=== PATIENT | male | born 1995 | race Caucasian/White ===

== ENCOUNTER → 2020-08-26 | Outpatient (CLI) | payer OTHER ==
--- NOTE | 2020-08-27 08:13 | CT ---
EXAMINATION TYPE: CT brain wo con DATE OF EXAM: 08/26/2020 COMPARISON: None INDICATION: Migraine unspecified, for several months on and off. DLP: 1189.10 mGycm, Automated exposure control for dose reduction was used. CONTRAST: None CT of the brain is performed utilizing 3 mm thick sections through the posterior fossa and 3 mm thick sections through the remaining calvarium. Study is performed within 24 hours of arrival to the [facility]. No abnormal hyperdensity is present to suggest an acute intracranial hemorrhage. No mass lesion is evident. No acute infarcts are evident. Ventricles and sulci are appropriate for the patient age. Mild mucosal thickening is present within left anterior and mid ethmoid air cells. Posterior right et hmoid air cells contain some fluid or mucosal thickening. Retention cyst within the right maxillary s inus. Remaining paranasal sinuses are clear. Mastoid air cells are clear. IMPRESSIONS: 1. No acute intracranial process. 2. Mild mucosal thickening within scattered paranasal sinuses.
== END | disposition home or self-care (01) ==
LOC: RADCTMAIN 17:02
PROVIDERS: ATTEND Nurse Practitioner Adult Health
DX: G43.909 Migraine, unspecified, not intractable, without status migrainosus (principal); J34.89 Other specified disorders of nose and nasal sinuses
CPT/HCPCS: 70450

== ENCOUNTER → 2023-04-16 | Outpatient (CLI) | payer BC ==
--- NOTE | 2023-04-16 17:40 | CA ---
Transthoracic Echo Report Name: Blake Evans Age: 27 Gender: M : 1995 Exam Date: 04/16/2023 15:53 Exam Location: [facility] Ht (in): 67 Wt (lb): 254 Ordering Physician: Sam Bass MD Attending/Referring Phys: Cristiane Browne [facility] Internal Control Specialist Brigitte Mason RDCS Procedure CPT: Indications: R01.1 CARDIAC MURMUR, UNSPECIFIED Cardiac Hx: Technical Quality: Fair Contrast 1: Total Dose (mL): Contrast 2: Total Dose (mL): MEASUREMENTS (Male / Female) Normal Values 2D ECHO LV Diastolic Diameter PLAX 4.7 cm 4.2 - 5.9 / 3.9 - 5.3 cm LV Systolic Diameter PLAX 2.7 cm IVS Diastolic Thickness 1.1 cm 0.6 - 1.0 / 0.6 - 0.9 cm LVPW Diastolic Thickness 1.1 cm 0.6 - 1.0 / 0.6 - 0.9 cm LV Relative Wall Thickness 0.5 RV Internal Dim ED PLAX 3.3 cm LV Diastolic Volume MOD BP 115.1 cm??? 67 - 155 / 56 - 104 cm??? LV Systolic Volume MOD BP 47.2 cm??? 22 - 58 / 19 - 49 cm??? LV Ejection Fraction MOD BP 59.0 % >= 55 % LV Cardiac Index MOD BP 1847.2 cm???/min???m??? LV Diastolic Volume MOD 4C 116.9 cm??? LV Systolic Volume MOD 4C 54.8 cm??? LV Ejection Fraction MOD 4C 53.1 % LV Cardiac Index MOD 4C 1691.5 cm???/min???m??? LV Diastolic Length 4C 8.1 cm LV Systolic Length 4C 7.3 cm LV Diastolic Volume MOD 2C 123.2 cm??? LV Systolic Volume MOD 2C 48.9 cm??? LV Ejection Fraction MOD 2C 60.3 % LV Cardiac Index MOD 2C 2023.3 cm???/min???m??? LV Diastolic Length 2C 8.5 cm LV Systolic Length 2C 6.7 cm LA Volume 61.9 cm??? 18 - 58 / 22 - 52 cm??? LA Volume Index 25.9 cm???/m??? 16 - 28 cm???/m??? M-MODE Aortic Root Diameter MM 2.7 cm DOPPLER AV Peak Velocity 191.1 cm/s AV Peak Gradient 14.6 mmHg LVOT Peak Velocity 118.3 cm/s LVOT Peak Gradient 5.6 mmHg Mitral E Point Velocity 120.2 cm/s Mitral A Point Velocity 59.2 cm/s Mitral E to A Ratio 2.0 MV Deceleration Time 126.2 ms MV E' Velocity 12.4 cm/s Mitral E to MV E' Ratio 9.7 FINDINGS Left Ventricle Left ventricular ejection fraction is estimated at 55-60 %. Left ventricular cavity size normal. Left ventricular wall thickness normal. Right Ventricle Mild right ventricular dilatation. Unable to estimate the right ventricular systolic pressure. Right Atrium Normal right atrial size. Left Atrium Mildly increased left atrial volume. Mildly increased left atrial area. Mitral Valve Structurally normal mitral valve. No mitral stenosis, regurgitation or prolapse. Aortic Valve Aortic valve not well visualized. No aortic valve stenosis or regurgitation. Tricuspid Valve Structurally normal tricuspid valve. No tricuspid stenosis, regurgitation or prolapse. Pulmonic Valve Structurally normal pulmonic valve. No pulmonic regurgitation. Pericardium No pericardial effusion. Aorta Normal size aortic root and proximal ascending aorta. CONCLUSIONS Normal left ventricular size and systolic function Previewed by: Dr. Stevan Carney MD (Electronically Signed) Final Date: 16 April 2023 17:39
== END | disposition home or self-care (01) ==
LOC: RADECHMAIN 15:45
PROVIDERS: ATTEND Family Medicine
DX: R01.1 Cardiac murmur, unspecified (principal)
CPT/HCPCS: 93306